=== PATIENT | female | born 1980 | race Caucasian/White ===

== ENCOUNTER → 2020-01-12 | Outpatient (CLI) | payer OTHER ==
[~2020-01-12] MED LIST: HYDROCODONE-AP1 EAC6 PO; ZOFRAN ODT4 MG PO
== END ==
LOC: M.RAD 11:05
PROVIDERS: ATTEND Nurse Practitioner Family
DX: Z12.31 Encounter for screening mammogram for malignant neoplasm of breast (principal)

== ENCOUNTER → 2020-01-18 | Outpatient (CLI) | payer OTHER | LOC: M.ULTRA 09:53 | PROVIDERS: ATTEND Nurse Practitioner Family | DX: N63.21 Unspecified lump in the left breast, upper outer quadrant (principal); N63.12 Unspecified lump in the right breast, upper inner quadrant ==